=== PATIENT | male | born 1995 | race Caucasian/White ===

== ENCOUNTER → 2016-05-09 | Outpatient (CLI) | payer OTHER | LOC: BHSO 14:25 | DX: F41.1 Generalized anxiety disorder (principal) ==

== ENCOUNTER → 2016-08-08 | Outpatient (CLI) | payer OTHER | LOC: BHSO 14:24 | DX: F41.1 Generalized anxiety disorder (principal) ==

== ENCOUNTER → 2016-12-12 | Outpatient (CLI) | payer OTHER | LOC: BHSO 14:30 | DX: F41.1 Generalized anxiety disorder (principal) ==